=== PATIENT | female | born 1985 | race Caucasian/White ===

== ENCOUNTER 2016-07-19 01:43 | Emergency (ER) | payer BC ==
[~2016-07-19] VITALS: Ht 170.2 cm; Wt 87.1 kg
--- NOTE | 2016-07-19 01:51 | ED.ADGEN ---
Adult General Chief Complaint Chief Complaint ".. I ve had diarrhea for over a month now.. I eat .. I poop... watery yellow bad smelling.. I about 8 week .. but this diarrhea has got to stop... I think I maybe getting dry...".. My urine is so dark... almost like blood in it..."..." Noticed it when I wiped...." I am having so many stools a day... I cant count them.... " HPI HPI Patient is a 30 year old FEMALE who presents with above hx and complaints of chronic diarrhea for the past month. Multiple stools a day. Patient is not eating any solids the last 2-3 days but continues to have diarrhea when she takes an fluids. Patient is 8 weeks . Pt. Follows at [facility] for this . Ultrasound there showed no problems with this . This is patient's third . No history of Rh negative blood type. . Patient denies any travel. Patient denies any ill contacts. Patient denies any recent use of antibiotics. Denies any history of immunosuppression. Patient denies any prior problems with colitis. Patient is on city water. Patient has no exotic pets. Does have a pet cat that is well. All her children are well. She is one with diarrhea in the household. Patient does give a history of gluten sensitivity or gluten intolerance. Review of Systems Review of Systems Constitutional: Denies fever or chills [] Eyes: Denies change in visual acuity, redness, or eye pain [] HENT: Denies nasal congestion or sore throat [] Respiratory: Denies cough or shortness of breath [] Cardiovascular: No additional information not addressed in HPI [] GI: Mild generalized abdomen discomfort. I'll complaints of nausea. No vomiting. No bloody stools. Complains of excessive watery diarrhea [] : Denies dysuria or hematuria [] Musculoskeletal: Denies back pain or joint pain [] Integument: Denies rash or skin lesions [] Neurologic: Denies headache, focal weakness or sensory changes [] Endocrine: Denies polyuria or polydipsia [] Family History Family History Noncontributory Current Medications Current Medications Current Medications Medications (Trade) Dose Ordered Sig/Carlos Eduardo Start Time Stop Time Status Last Admin Dose Admin Lactated Ringer's (Iv Lactated Ringers) 1,000 ml @ 1,000 mls/hr Q1H 07/19/16 03:00 07/19/16 06:26 DC 07/19/16 03:25 1,000 MLS/HR Allergies Allergies Allergies Coded Allergies Type Severity Reaction Last Updated Verified hydrocodone Allergy Mild 07/19/16 Yes No known drug allergies Physical Exam Physical Exam Constitutional: Well developed, well nourished, no acute distress, non-toxic appearance. [] HENT: Normocephalic, atraumatic, bilateral external ears normal, oropharynx dry , no oral exudates, nose normal. [] Eyes: PERRLA, EOMI, conjunctiva normal, no discharge. [] Neck: Normal range of motion, no tenderness, supple, no stridor. [] Cardiovascular:Heart rate regular rhythm, no murmur [] Lungs & Thorax: Bilateral breath sounds clear to auscultation [] Abdomen: Bowel sounds hyperactive, soft, no tenderness, no masses, no pulsatile masses. No true rebound. Gravid. Pt. declined pelvic or rectal at this time. Pt. decline to wait for formal US at this time. No rebound. Skin: Warm, dry, no erythema, no rash. Scar right medial side of forearm Back: No tenderness, no CVA tenderness. [] Extremities: No tenderness, no cyanosis, no clubbing, ROM intact, no edema. No psoas or obturator sign. Neurologic: Alert and oriented X 3, normal motor function, normal sensory function, no focal deficits noted. [DTRs are +2 at patella. Psychologic: Affect anxious, judgement normal, mood normal. [] Current Patient Data Vital Signs Vital Signs Date Time Temp Pulse Resp B/P Pulse Ox O2 Delivery O2 Flow Rate FiO2 07/19/16 06:10 98.3 66 18 111/61 98 Room Air Lab Results Laboratory Tests Test 07/19/16 02:08 07/19/16 02:45 Urine Collection Type Unknown Urine Color Yellow Urine Clarity Clear Urine pH 5.5 Urine Specific [place] 1.020 Urine Protein Neg (NEG-TRACE) Urine Glucose (UA) Negmg/dL (NEG) Urine Ketones (Stick) Negmg/dL (NEG) Urine Blood Trace (NEG) Urine Nitrite Neg (NEG) Urine Bilirubin Neg (NEG) Urine Urobilinogen Dipstick 0.2mg/dL (0.2 mg/dL) Urine Leukocyte Esterase Neg (NEG) Urine RBC 1-2/HPF (0-2) Urine WBC Occ/HPF (0-4) Urine Squamous Epithelial Cells Occ/LPF Urine Bacteria Few/HPF (0-FEW) Urine Mucus Slight/LPF White Blood Count 7.6x10^3/uL (4.0-11.0) Red Blood Count 4.30x10^6/uL (3.50-5.40) Hemoglobin 13.0g/dL (12.0-15.5) Hematocrit 38.9% (36.0-47.0) Mean Corpuscular Volume 91fL (79-100) Mean Corpuscular Hemoglobin 30pg (25-35) Mean Corpuscular Hemoglobin Concent 33g/dL (31-37) Red Cell Distribution Width 13.0% (11.5-14.5) Platelet Count 293x10^3/uL (140-400) Neutrophils (%) (Auto) 59% (31-73) Lymphocytes (%) (Auto) 32% (24-48) Monocytes (%) (Auto) 8% (0-9) Eosinophils (%) (Auto) 2% (0-3) Basophils (%) (Auto) 0% (0-3) Neutrophils # (Auto) 4.5x10^3uL (1.8-7.7) Lymphocytes # (Auto) 2.4x10^3/uL (1.0-4.8) Monocytes # (Auto) 0.6x10^3/uL (0.0-1.1) Eosinophils # (Auto) 0.1x10^3/uL (0.0-0.7) Basophils # (Auto) 0.0x10^3/uL (0.0-0.2) Maternal Serum HCG Beta Subunit [id number]/mL (0-6) H Sodium Level 140mmol/L (136-145) Potassium Level 3.5mmol/L (3.5-5.1) Chloride Level 104mmol/L (98-107) Carbon Dioxide Level 23mmol/L (21-32) Anion Gap 13 (6-14) Blood Urea Nitrogen 6mg/dL (7-20) L Creatinine 0.6mg/dL (0.6-1.0) Estimated GFR (Cockcroft-Gault) 117.4 Glucose Level 98mg/dL (70-99) Calcium Level 8.8mg/dL (8.5-10.1) Lipase 116U/L (73-393) EKG EKG [] Radiology/Procedures Radiology/Procedures [] Course & Med Decision Making Course & Med Decision Making Pertinent Labs and Imaging studies reviewed. (See chart for details). Stay on a clear fluid diet only for the next 3 days. No solid or milk products. Allow bowel rest. Push fluids. Follow-up primary care. Follow-up cultures of stool collected here. Follow-up urine results and labs. Pt. unable to produce a stool sample while in ED. May take calcium tabs. [] Final Impression Final Impression 1. Hx. of Diarrhea [] 2. Hx. 8 week gravid 3. Possible history of gluten sensitivity or intolerance Problems: Dragon Disclaimer Dragon Disclaimer This electronic medical record was generated, in whole or in part, using a voice recognition dictation system. JEROME DIXON MD Jul 19, 2016 01:51
[2016-07-19 02:49] LABS: BACTERIA,URINE FEW /HPF (0-FEW); BILIRUBIN,URINE NEG (NEG); CLARITY,URINE CLEAR; COLOR,URINE YELLOW; GLUCOSE,URINE NEG (NEG); NITRITE,URINE NEG (NEG); SQUAMOUS EPITHELIAL CELL,UR OCC /LPF; UROBILINOGEN,URINE 0.2 mg/dL (0.2 mg/dL); WBC,URINE OCC /HPF (0-4)
[2016-07-19] MEDS ORDERED: IV RINGERS SOLUTION,LACTATED 1,000 ML IV SCH (03:00)
[2016-07-19 03:32] LABS: BASO % 0 % (0-3); EOS # 0.1 x10^3/uL (0.0-0.7); EOS % 2 % (0-3); HEMATOCRIT 38.9 % (36.0-47.0); LYMPH # 2.4 x10^3/uL (1.0-4.8); LYMPH % 32 % (24-48); MEAN CORPUSCULAR HEMOGLOBIN 30 pg (25-35); MEAN CORPUSCULAR HGB CONC 33 g/dL (31-37); MEAN CORPUSCULAR VOLUME 91 fL (79-100); MONO # 0.6 x10^3/uL (0.0-1.1); MONO % 8 % (0-9); NEUT # 4.5 x10^3uL (1.8-7.7); NEUT % 59 % (31-73); PLATELET COUNT 293 x10^3/uL (140-400); WHITE BLOOD COUNT 7.6 x10^3/uL (4.0-11.0)
[2016-07-19 03:44] LABS: CALCIUM 8.8 mg/dL (8.5-10.1); CREATININE 0.6 mg/dL (0.6-1.0); GFR 117.4; POTASSIUM 3.5 mmol/L (3.5-5.1)
[2016-07-19 06:10] VITALS: BP 111/61
== END 2016-07-19 06:11 | disposition home or self-care (01) ==
LOC: ER 01:43
DX: O26.891 Other specified pregnancy related conditions, first trimester (principal); R19.7 Diarrhea, unspecified; R10.84 Generalized abdominal pain; Z3A.08 8 weeks gestation of pregnancy; Z88.6 Allergy status to analgesic agent
CPT/HCPCS: 36415; 80048; 81001; 83690; 84702; 85027; 96360; 96361; 99285; J7120

== ENCOUNTER 2018-05-29 10:51 | Emergency (ER) | payer BC ==
[2018-05-29 11:08] VITALS: BP 144/101
[2018-05-29] MEDS ORDERED: AMOX1TAB61 PO (11:32)
[2018-05-29] MEDS ORDERED: HYDR-3165 PO (11:32)
--- NOTE | 2018-05-29 11:32 | PHYS DOC ---
Past History Past Medical History: No Pertinent History Past Surgical History: No Surgical History Alcohol Use: None Drug Use: None Adult General Chief Complaint Chief Complaint: DENTAL PROBLEM HPI HPI 32-year-old female presents with right lower dental pain. The patient has a known cavity and is scheduled for extraction with conscious sedation on Wednesday. She presents today because the pain has been increasing last couple of days. The dentist was not able to move up her appointment. She has been taking ibuprofen, Orajel, even 50 mg tramadol that the dentist prescribed minutes not working. She is also taking amoxicillin daily. She feels like the swelling is worse in the last 2 days. She denies fever or chills. Review of Systems Review of Systems Constitutional: Denies fever or chills [] Eyes: Denies change in visual acuity, redness, or eye pain [] HENT: Denies nasal congestion or sore throat. Dental pain [] Respiratory: Denies cough or shortness of breath [] Cardiovascular: No additional information not addressed in HPI [] GI: Denies abdominal pain, nausea, vomiting, bloody stools or diarrhea [] : Denies dysuria or hematuria [] Musculoskeletal: Denies back pain or joint pain [] Integument: Denies rash or skin lesions [] Neurologic: Denies headache, focal weakness or sensory changes [] Endocrine: Denies polyuria or polydipsia [] All other systems were reviewed and found to be within normal limits, except as documented in this note. Allergies Allergies Allergies Coded Allergies Type Severity Reaction Last Updated Verified hydrocodone Allergy Mild 07/19/16 Yes Physical Exam Physical Exam Constitutional: Well developed, well nourished, no acute distress, non-toxic appearance. [] HENT: Normocephalic, atraumatic, bilateral external ears normal, oropharynx moist, no oral exudates, nose normal. Tooth #32 with severe cavity and central decomposition. Surrounding gums are mildly erythematous.[] Eyes: PERRLA, EOMI, conjunctiva normal, no discharge. [] Neck: Normal range of motion, no tenderness, supple, no stridor. [] Cardiovascular:Heart rate regular rhythm, no murmur [] Lungs & Thorax: Bilateral breath sounds clear to auscultation [] Abdomen: Bowel sounds normal, soft, no tenderness, no masses, no pulsatile masses. [] Skin: Warm, dry, no erythema, no rash. [] Back: No tenderness, no CVA tenderness. [] Extremities: No tenderness, no cyanosis, no clubbing, ROM intact, no edema. [] Neurologic: Alert and oriented X 3, normal motor function, normal sensory function, no focal deficits noted. [] Psychologic: Affect normal, judgement normal, mood normal. [] Current Patient Data Vital Signs Vital Signs Date Time Temp Pulse Resp B/P (MAP) Pulse Ox O2 Delivery O2 Flow Rate FiO2 05/29/18 11:08 98.6 86 16 98 Room Air EKG EKG [] Radiology/Procedures Radiology/Procedures [] Course & Med Decision Making Course & Med Decision Making Pertinent Labs and Imaging studies reviewed. (See chart for details) I will give the patient a prescription for [place] 5/325. She has an appointment for extraction. I'm going to upgrade her antibiotic to Augmentin due to her reported increase in swelling in case it is becoming resistant to amoxicillin alone. [] Dragon Disclaimer Dragon Disclaimer This electronic medical record was generated, in whole or in part, using a voice recognition dictation system. Departure Departure: Impression: Primary Impression: Infected dental caries Disposition: HOME, SELF-CARE Condition: STABLE Referrals: PCP,NO (PCP) Patient Instructions: Abscessed Tooth, [place] Scripts Amoxicillin/Potassium Clav (AUGMENTIN 875-125 TABLET) 1 Each Tablet 1 TAB PO BID for dental infection, #14 TAB Prov: PAOLO GONZALEZ DO 05/29/18 Hydrocodone Bit/Acetaminophen (NOR[place] 5-325 TABLET) 1 Each Tablet 1 TAB PO PRN Q6HRS PRN for PAIN, #14 TAB 0 Refills Prov: PAOLO GONZALEZ DO 05/29/18 PAOLO GONZALEZ DO May 29, 2018 11:32
== END 2018-05-29 11:38 | disposition home or self-care (01) ==
LOC: ER 10:51
DX: K04.7 Periapical abscess without sinus (principal); K02.9 Dental caries, unspecified; Z88.5 Allergy status to narcotic agent
CPT/HCPCS: 99283

== ENCOUNTER → 2020-02-16 | Outpatient (CLI) | payer BC ==
[~2020-02-16] MED LIST: AMOX1TAB61 PO; HYDR-3165 PO
--- NOTE | 2020-02-16 08:13 | RAD ---
EXAM: CT Head without IV contrast INDICATION: Reason: CHRONIC HEADACHE FOR 8 DAYS, WORSE ON THE LEFT / Spl. Instructions: / History: TECHNIQUE: Multi-detector row CT images were obtained of the head without the use of IV contrast. All CT scans performed at this facility utilize dose optimization techniques as appropriate to the exam, including the following: Automated exposure control and adjustment of the mA and/or KV according to patient size (this includes techniques or standardized protocols for targeted exams where dose is indication/reason for exam). COMPARISON: None FINDINGS: BRAIN PARENCHYMA: No evidence of acute intraparenchymal hemorrhage or infarct. No abnormal parenchymal density or mass. VENTRICLES & EXTRA-AXIAL SPACES: Ventricles are within normal limits. Basilar cisterns are patent. No pathologic extra-axial fluid collection or mass. ORBITS: Orbital contents are unremarkable. SINUSES: Visualized paranasal sinuses and mastoid air cells are clear. OSSEOUS & SOFT TISSUES: Calvarium and skull base are intact. IMPRESSION: Normal CT of the head without contrast. Electronically signed by: Stevenson Live MD (02/16/2020 8:10 AM) [id number]
== END ==
LOC: CT 07:42
PROVIDERS: ATTEND Nurse Practitioner Adult Health
DX: R51.9 Headache, unspecified (principal)
CPT/HCPCS: 70450